=== PATIENT | male | born 1965 | race African-American/Black ===

== ENCOUNTER 2019-05-16 05:54 | Emergency (ER) | payer BC ==
[~2019-05-16] VITALS: Ht 170.2 cm; Wt 117.9 kg
[2019-05-16] MEDS ORDERED: ONDANSETRON PF 4 MG/2 ML VIAL. ONE (06:26)
[2019-05-16] MEDS ORDERED: fentaNYL PF VIAL 100 MCG/2 ML VIAL ONE (06:27)
[2019-05-16 06:28] LABS: BILIRUBIN,URINE NEGATIVE (NEG); CLARITY,URINE CLEAR; COLOR,URINE YELLOW; NITRITE,URINE NEGATIVE (NEG); PROTEIN,URINE NEGATIVE (NEG-TRACE); UROBILINOGEN,URINE 0.2 mg/dL (0.2 mg/dL)
[2019-05-16 06:33] LABS: BASO % 0 % (0-3); EOS # 0.1 x10^3/uL (0.0-0.7); EOS % 1 % (0-3); HEMOGLOBIN 13.9 g/dL (13.0-17.5); LYMPH # 2.4 x10^3/uL (1.0-4.8); LYMPH % 30 % (24-48); MEAN CORPUSCULAR HEMOGLOBIN 28 pg (25-35); MEAN CORPUSCULAR HGB CONC 33 g/dL (31-37); MEAN CORPUSCULAR VOLUME 84 fL (79-100); MONO # 0.6 x10^3/uL (0.0-1.1); MONO % 7 % (0-9); NEUT # 4.9 x10^3/uL (1.8-7.7); NEUT % 62 % (31-73); PLATELET COUNT 265 x10^3/uL (140-400); RED CELL DISTRIBUTION WIDTH 13.6 % (11.5-14.5)
[2019-05-16 06:57] LABS: BACTERIA,URINE 0 /HPF (0-FEW); RBC,URINE >40 /HPF (0-2); SQUAMOUS EPITHELIAL CELL,UR FEW /LPF
[2019-05-16] MEDS ORDERED: ONDANSETRON PF 4 MG/2 ML VIAL. IV ONE (07:00)
[2019-05-16] MEDS ORDERED: IV NORMAL SALINE 1000ML BAG 1,000 ML IV SCH (07:00)
[2019-05-16] MEDS ORDERED: fentaNYL PF VIAL 100 MCG/2 ML VIAL IV ONE (07:00)
[2019-05-16 07:01] LABS: CALCIUM 9.2 mg/dL (8.5-10.1); CREATININE 1.3 mg/dL (0.7-1.3)
[2019-05-16 07:11] LABS: ALBUMIN 3.6 g/dL (3.4-5.0); ALBUMIN/GLOBULIN RATIO 0.8 (1.0-1.7); TOTAL BILIRUBIN 0.3 mg/dL (0.2-1.0); TOTAL PROTEIN 7.9 g/dL (6.4-8.2)
--- NOTE | 2019-05-16 07:14 | PHYS DOC ---
Past Medical History Past Medical History: High Cholesterol Past Surgical History: Appendectomy Additional Past Surgical Histo: ACHILES Alcohol Use: Occasionally Drug Use: None Adult General Chief Complaint Chief Complaint: ABDOMINAL PAIN HPI HPI Patient is a 54 year old male who presents with complaining of abdominal pain. Patient states he woke up around 3:30 this morning because of sudden onset of right lower quadrant pain as a sharp pain with radiation to scrotal area. Patient said the pain was 5 /10 and it was started and increased to 8/10. Patient states that the pain getting better and worse and denies nausea, vomiting, fever and chills, diarrhea and constipation. Patient states that the urine is darker than usual but denies dysuria. Patient states he had a bowel movement after starting the pain without change of his pain and tried to make himself to vomit to improve the pain without any change. Patient denies history of the same pain and kidney stone. Patient had history of appendectomy. Review of Systems Review of Systems Constitutional: Denies fever or chills [] Eyes: Denies change in visual acuity, redness, or eye pain [] HENT: Denies nasal congestion or sore throat [] Respiratory: Denies cough or shortness of breath [] Cardiovascular: No additional information not addressed in HPI [] GI: Reports abdominal pain, denies nausea, vomiting, bloody stools or diarrhea [] : Denies dysuria or hematuria [] Musculoskeletal: Denies back pain or joint pain [] Integument: Denies rash or skin lesions [] Neurologic: Denies headache, focal weakness or sensory changes [] Endocrine: Denies polyuria or polydipsia [] All other systems were reviewed and found to be within normal limits, except as documented in this note. Current Medications Current Medications Current Medications Medications (Trade) Dose Ordered Sig/Elvin Start Time Stop Time Status Last Admin Dose Admin Acetaminophen/ Hydrocodone Bitart (Lortab 5/325) 1 tab 1X ONCE 05/16/19 07:45 05/16/19 07:46 DC 05/16/19 07:51 1 TAB Fentanyl Citrate (Fentanyl 2ml Vial) 100 mcg STK-MED ONCE 05/16/19 06:27 05/16/19 06:27 DC Ondansetron HCl (Zofran) 4 mg STK-MED ONCE 05/16/19 06:26 05/16/19 06:27 DC Sodium Chloride 1,000 ml @ 1,000 mls/hr Q1H 05/16/19 07:00 05/16/19 07:59 DC 05/16/19 06:32 1,000 MLS/HR Tamsulosin HCl (Flomax) 0.4 mg 1X ONCE 05/16/19 07:45 05/16/19 07:46 DC 05/16/19 07:51 0.4 MG Allergies Allergies Allergies Coded Allergies Type Severity Reaction Last Updated Verified No Known Drug Allergies 05/16/19 No Physical Exam Physical Exam Constitutional: Well developed, well nourished, mild distress, non-toxic appeara nce. [] HENT: Normocephalic, atraumatic. Eyes: PERRLA, EOMI, conjunctiva normal, no discharge. [] Neck: Normal range of motion, no tenderness, supple, no stridor. [] Cardiovascular:Heart rate regular rhythm, no murmur [] Lungs & Thorax: Bilateral breath sounds clear to auscultation [] Abdomen: Bowel sounds normal, soft, no tenderness, no masses, no pulsatile masses. [] Skin: Warm, dry, no erythema, no rash. [] Back: No tenderness, no CVA tenderness. [] Extremities: No tenderness, no cyanosis, no clubbing, ROM intact, no edema. [] Neurologic: Alert and oriented X 3, no focal deficits noted. [] Psychologic: Affect normal, judgement normal, mood normal. [] Current Patient Data Vital Signs Vital Signs Date Time Temp Pulse Resp B/P (MAP) Pulse Ox O2 Delivery O2 Flow Rate FiO2 05/16/19 07:51 18 100 Room Air 05/16/19 07:48 123/71 (88) 05/16/19 06:12 97.5 74 97.5 Lab Values Laboratory Tests Test 05/16/19 06:00 05/16/19 06:10 Urine Collection Type Unknown Urine Color Yellow Urine Clarity Clear Urine pH 5.0 Urine Specific [place] >=1.030 Urine Protein Negative mg/dL (NEG-TRACE) Urine Glucose (UA) Negative mg/dL (NEG) Urine Ketones (Stick) Negative mg/dL (NEG) Urine Blood Large (NEG) Urine Nitrite Negative (NEG) Urine Bilirubin Negative (NEG) Urine Urobilinogen Dipstick 0.2 mg/dL (0.2 mg/dL) Urine Leukocyte Esterase Negative (NEG) Urine RBC >40 /HPF (0-2) Urine WBC 1-4 /HPF (0-4) Urine Squamous Epithelial Cells Few /LPF Urine Bacteria 0 /HPF (0-FEW) Urine Mucus Slight /LPF White Blood Count 8.0 x10^3/uL (4.0-11.0) Red Blood Count 5.00 x10^6/uL (4.30-5.70) Hemoglobin 13.9 g/dL (13.0-17.5) Hematocrit 42.0 % (39.0-53.0) Mean Corpuscular Volume 84 fL (79-100) Mean Corpuscular Hemoglobin 28 pg (25-35) Mean Corpuscular Hemoglobin Concent 33 g/dL (31-37) Red Cell Distribution Width 13.6 % (11.5-14.5) Platelet Count 265 x10^3/uL (140-400) Neutrophils (%) (Auto) 62 % (31-73) Lymphocytes (%) (Auto) 30 % (24-48) Monocytes (%) (Auto) 7 % (0-9) Eosinophils (%) (Auto) 1 % (0-3) Basophils (%) (Auto) 0 % (0-3) Neutrophils # (Auto) 4.9 x10^3/uL (1.8-7.7) Lymphocytes # (Auto) 2.4 x10^3/uL (1.0-4.8) Monocytes # (Auto) 0.6 x10^3/uL (0.0-1.1) Eosinophils # (Auto) 0.1 x10^3/uL (0.0-0.7) Basophils # (Auto) 0.0 x10^3/uL (0.0-0.2) Sodium Level 142 mmol/L (136-145) Potassium Level 4.0 mmol/L (3.5-5.1) Chloride Level 105 mmol/L (98-107) Carbon Dioxide Level 30 mmol/L (21-32) Anion Gap 7 (6-14) Blood Urea Nitrogen 17 mg/dL (8-26) Creatinine 1.3 mg/dL (0.7-1.3) Estimated GFR (Cockcroft-Gault) 58.0 BUN/Creatinine Ratio 13 (6-20) Glucose Level 121 mg/dL (70-99) H Calcium Level 9.2 mg/dL (8.5-10.1) Total Bilirubin 0.3 mg/dL (0.2-1.0) Aspartate Amino Transferase (AST) 21 U/L (15-37) Alanine Aminotransferase (ALT) 27 U/L (16-63) Alkaline Phosphatase 64 U/L (46-116) Total Protein 7.9 g/dL (6.4-8.2) Albumin 3.6 g/dL (3.4-5.0) Albumin/Globulin Ratio 0.8 (1.0-1.7) L Lipase 122 U/L (73-393) Laboratory Tests 05/16/19 06:10 Laboratory Tests 05/16/19 06:10 EKG EKG [] Radiology/Procedures Radiology/Procedures [][facility] [address] [place] [address] IMAGING REPORT Signed PATIENT: JARVIS JIMENES ACCOUNT: [id number] : 1965 LOCATION: ER AGE: 54 SEX: M EXAM STATUS: REG ER ORD. PHYSICIAN: FRED MAHARAJ MD REASON: RLQ pain with radiation to scrotum, h/o appendectomy PROCEDURE: CT ABDOMEN PELVIS WO CONTRAST Examination: CT ABDOMEN PELVIS WO CONTRAST History: Right lower quadrant pain with radiation to the scrotum. History of appendectomy. Comparison/Correlation: None Findings: Axial images of the abdomen and pelvis were obtained without contrast. Sagittal and coronal reformatted images were provided. Visualized lung bases are clear. There is a calcified granuloma at the medial left lung base. There is a small nodular structure adjacent to the left major fissure inferiorly along the posterior margin likely representing a perifacial lymph node. Partially calcified nodule at the right lung base also seen. Liver, spleen, pancreas, and adrenal glands are unremarkable. Minimal nodularity of the left adrenal gland probably representing adenomatous involvement is evident. Gallbladder fossa is unremarkable. Slight right hydronephrosis and proximal hydroureter due to an obstructive calculus at the L4 level measuring 0.5 cm diameter is present. There is a left renal interpolar calyceal calculus measuring up to 0.7 cm diameter. No hydronephrosis. Urinary bladder is mostly decompressed. No urinary bladder calculi are visualized. Prostate gland is mildly prominent in size and measures up to 4.5 cm transverse. Appendectomy noted. No bowel obstruction or extraluminal gas. No ascites or pelvic free fluid. No enlarged abdominal or pelvic lymph nodes. Surgical clips are present involving the inguinal canal bilaterally. Bony structures are unremarkable. Impression: Right ureteral 0.5 cm diameter obstructive calculus at the L4 level. Nonobstructive left renal calculus. RS Compliance Statement: One or more of the following individualized dose reduction techniques were utilized for this examination: 1. Automated exposure control 2. Adjustment of the mA and/or kV according to patient size 3. Use of iterative reconstruction technique Electronically signed by: Ti Orta MD (05/16/2019 7:24 AM) [facility] DICTATED and SIGNED BY: TI ORTA MD DATE: 05/16/19 0724 Course & Med Decision Making Course & Med Decision Making Pertinent Labs and Imaging studies reviewed. (See chart for details) Evaluation of patient in ER showed 54-year-old male patient with complaining of right lower quadrant pain since this morning. Patient had unremarkable physical exam except for moderate distress of pain. Patient had hematuria and CT of ab domen and pelvis showed 0.5 mm ureteral stone. Better with treatment in ER and was advised to follow up with on-call urologist and strain all of his urine. I've spoken with the patient and/or caregivers. I've explained the patient's condition, diagnosis and treatment plan based on information available to me at this time. I've answered the patient's and/or caregivers questions and addressed any concerns. The patient and/or caregivers have a good understanding the patient's diagnosis, condition and treatment plan as can be expected at this point. Vital signs have been stabilized. The patient's condition is stable for discharge from the emergency department. The patient will pursue further outpatient evaluation with her primary care provider or other designated consulting physician as outlined in the discharge instructions. Patient and/or caregivers are agreeable to this plan of care and follow-up instructions have been explained in detail. The patient and/or caregivers have received these instructions in written format and expressed understanding of these discharge instructions. The patient and her caregivers are aware that if any significant change in condition or worsening of symptoms should prompt him to immediately return to this of the closest emergency department. If an emergent department is not readily available I would encourage him to call 911. Hailee Disclaimer Hailee Disclaimer This electronic medical record was generated, in whole or in part, using a voice recognition dictation system. Departure Departure Impression: Primary Impression: Renal colic on right side Additional Impressions: Ureterolithiasis Hematuria Disposition: HOME, SELF-CARE (at 0756) Condition: IMPROVED Referrals: TSERING HARRINGTON MD Patient Instructions: Diet for Kidney Stones, Kidney Stones Additional Instructions: Drink plenty of liquids Follow-up with your primary care physician in 3-5 days Return to ER if not getting better Strain all of your urine Follow-up with on-call urologist in 2 or 3 days Scripts Ondansetron Hcl (ZOFRAN) 4 Mg Tablet 1 TAB PO PRN Q6-8HRS for nausea, #12 TAB Prov: FRED MAHARAJ MD 05/16/19 Hydrocodone/Apap 5-325 (NORCO 5-325 TABLET) 1 Each Tablet 1 TAB PO PRN Q6HRS PRN for PAIN, #14 TAB 0 Refills Prov: FRED MAHARAJ MD 05/16/19 Ibuprofen (IBUPROFEN) 800 Mg Tablet 800 MG PO PRN Q8HRS PRN for INFLAMMATION, #20 TAB Prov: FRED MAHARAJ MD 05/16/19 Tamsulosin Hcl (FLOMAX) 0.4 Mg Cap.er.24h 1 CAP PO DAILY, #14 CAP 0 Refills Prov: FRED MAHARAJ MD 05/16/19 Problem Qualifiers Additional Impressions: Hematuria Hematuria type: unspecified type Qualified Codes: R31.9 - Hematuria, unspecified FRED MAHARAJ MD May 16, 2019 07:14
--- NOTE | 2019-05-16 07:27 | RAD ---
Examination: CT ABDOMEN PELVIS WO CONTRAST History: Right lower quadrant pain with radiation to the scrotum. History of appendectomy. Comparison/Correlation: None Findings: Axial images of the abdomen and pelvis were obtained without contrast. Sagittal and coronal reformatted images were provided. Visualized lung bases are clear. There is a calcified granuloma at the medial left lung base. There is a small nodular structure adjacent to the left major fissure inferiorly along the posterior margin likely representing a perifacial lymph node. Partially calcified nodule at the right lung base also seen. Liver, spleen, pancreas, and adrenal glands are unremarkable. Minimal nodularity of the left adrenal gland probably representing adenomatous involvement is evident. Gallbladder fossa is unremarkable. Slight right hydronephrosis and proximal hydroureter due to an obstructive calculus at the L4 level measuring 0.5 cm diameter is present. There is a left renal interpolar calyceal calculus measuring up to 0.7 cm diameter. No hydronephrosis. Urinary bladder is mostly decompressed. No urinary bladder calculi are visualized. Prostate gland is mildly prominent in size and measures up to 4.5 cm transverse. Appendectomy noted. No bowel obstruction or extraluminal gas. No ascites or pelvic free fluid. No enlarged abdominal or pelvic lymph nodes. Surgical clips are present involving the inguinal canal bilaterally. Bony structures are unremarkable. Impression: Right ureteral 0.5 cm diameter obstructive calculus at the L4 level. Nonobstructive left renal calculus. PQRS Compliance Statement: One or more of the following individualized dose reduction techniques were utilized for this examination: 1. Automated exposure control 2. Adjustment of the mA and/or kV according to patient size 3. Use of iterative reconstruction technique Electronically signed by: Ti Enriquez MD (05/16/2019 7:24 AM) [facility]
[2019-05-16] MEDS ORDERED: TAMSULOSIN 0.4 MG CAP.ER.24H. PO ONE (07:45)
[2019-05-16] MEDS ORDERED: HYDROcodone/APAP 5/325MG 1 TAB TABLET PO ONE (07:45)
[2019-05-16 07:48] VITALS: BP 123/71
[2019-05-16] MEDS ORDERED: IBUP-1060 PO (07:58)
[2019-05-16] MEDS ORDERED: TAMS0.4C97 PO (07:58)
[2019-05-16] MEDS ORDERED: ONDA4TAB7 PO (07:58)
[2019-05-16] MEDS ORDERED: HYDR-3164 PO (07:58)
== END 2019-05-16 08:05 | disposition home or self-care (01) ==
LOC: ER 05:54
DX: N13.2 Hydronephrosis with renal and ureteral calculous obstruction (principal); E78.00 Pure hypercholesterolemia, unspecified; Z90.89 Acquired absence of other organs
CPT/HCPCS: 36415; 74176; 80053; 81001; 83690; 85025; 96374; 96375; 99285; J2405; J3010; J7030